=== PATIENT | male | born 1970 | race Caucasian/White ===

== ENCOUNTER 2016-12-08 10:22 | Emergency (ER) | payer OTHER ==
[~2016-12-08] VITALS: Ht 180.3 cm; Wt 98.5 kg
[2016-12-08] MEDS ORDERED: SODIUM CHLORIDE 0.9% 1,000 ML IV ONE (10:44)
[2016-12-08] MEDS ORDERED: SODIUM CHLORIDE FLUSH 10ML SYR IVF ONE (11:00)
[2016-12-08] MEDS ORDERED: SODIUM CHLORIDE 0.9% 1,000ML IVBOLUS ONE (11:00)
[2016-12-08 11:16] LABS: DAU SCREEN DISCLAIMER
[2016-12-08 11:28] LABS: HEMATOCRIT 50.6 % (39.2-51.8); WHITE BLOOD COUNT 8.3 x10^3/uL (3.4-10)
[2016-12-08 11:32] LABS: BLOOD UREA NITROGEN 16 mg/dL (7-18)
[2016-12-08 11:38] LABS: ASPARTATE AMINO TRANSFERASE 17 U/L (15-37)
[2016-12-08 11:39] LABS: IS PT STATUS REG ER OR PRE ER? YES
[2016-12-08 12:53] VITALS: BP 121/90
== END 2016-12-08 12:56 | disposition home or self-care (01) ==
LOC: ED 12:44
DX: R55 Syncope and collapse (principal); F12.10 Cannabis abuse, uncomplicated; Z88.0 Allergy status to penicillin; Z88.2 Allergy status to sulfonamides
CPT/HCPCS: 36415; 70450; 71010; 80053; 80307; 81003; 83036; 83605; 84439; 84443; 84484; 85025; 93005; 96360; 99285; J7030